=== PATIENT | female | born 1955 | race Two or more races ===

== ENCOUNTER 2017-12-19 08:56 | Day surgery (SDC) | payer BC ==
[2017-12-15 15:43] VITALS: BMI 22.1
[2017-12-19] MEDS ORDERED: PROPOFOL 20 ML ONE ×2 (09:40)
[2017-12-19 10:45] VITALS: TEMP 97.7
[2017-12-19 11:24] VITALS: BP 116/59; PULSE 71
--- NOTE | 2017-12-20 12:35 | PATH ---
Surgical Pathology Report Patient Name: BEAR CROCKETT [facility]. Rec. #: [id number] /Age/Gender: 1955 (Age: 62) / F Account: [id number] Location: [facility]-ENDOSCOPY Taken: 12/19/2017 Received: 12/19/2017 Reported: 12/20/2017 Physicians: Binh Bach M.D. Specimen(s) Received A: BX DUODENUM B: BX ANTRUM Clinical History Preoperative diagnosis: GERD, rule out colon cancer Postoperative diagnosis: Rule out celiac disease, gastritis Final Diagnosis A. DUODENUM, BIOPSY: DUODENAL MUCOSA WITHOUT SIGNIFICANT PATHOLOGIC FINDINGS. B. STOMACH, ANTRUM, BIOPSY: GASTRIC ANTRAL MUCOSA WITH MILD CHRONIC GASTRITIS. IMMUNOHISTOCHEMICAL STAIN FOR H. PYLORI IS NEGATIVE. Electronically Signed Erna Quinones M.D. Gross Description A. Received in formalin, labeled "duodenum" are 2 ernst, irregular portions of soft tissue averaging 0.3 cm. in greatest dimension. The specimens are submitted in toto in one cassette. B. Received in formalin, labeled "antrum" are 2 ernst, irregular portions of soft tissue measuring 0.2 and 0.4 cm. in greatest dimension. The specimens are submitted in toto in one cassette. /12/19/201712/19/2017
== END 2017-12-19 11:30 | disposition home or self-care (01) ==
LOC: FASU-ENDO 08:56
PROVIDERS: ATTEND Internal Medicine Gastroenterology
PROC: 0DB68ZX Excision of Stomach, Via Natural or Artificial Opening Endoscopic, Diagnostic (ICD-10-PCS; 2017-12-19)
PROC: 0DJD8ZZ Inspection of Lower Intestinal Tract, Via Natural or Artificial Opening Endoscopic (ICD-10-PCS; principal; 2017-12-19 10:03)
PROC: 0DB98ZX Excision of Duodenum, Via Natural or Artificial Opening Endoscopic, Diagnostic (ICD-10-PCS; 2017-12-19 10:03)
DX: Z12.11 Encounter for screening for malignant neoplasm of colon (principal); K57.30 Diverticulosis of large intestine without perforation or abscess without bleeding; K64.8 Other hemorrhoids; K29.50 Unspecified chronic gastritis without bleeding; R12 Heartburn

== ENCOUNTER 2020-06-09 09:29 | Emergency (ER) | payer BC, OTHER ==
--- NOTE | 2020-06-09 09:52 | TELE ---
HPI - General Reason For Visit: COVID 19 TESTING History Source: Patient Past History - Medical History Allergies/Adverse Reactions: Allergies Allergy/AdvReac Type Severity Reaction Status Date / Time codeine Allergy Severe Rash Unverified 12/15/17 15:45 Home Medications: Ambulatory Orders Amlodipine Besylate 2.5 mg PO DAILY tablet 05/20/17 Denosumab [Prolia -] 60 mg SQ [id number] 05/20/17 Levothyroxine Sodium 75 mcg PO DAILY tablet 05/20/17 Anemia: No Asthma: No Cancer: No Cardiac Disorders: No CVA: No COPD: No CHF: No Dementia: No Diabetes: No GI Disorders: Yes (GERD) Disorders: No HTN: Yes Hypercholesterolemia: No Liver Disease: No Seizures: No Thyroid Disease: Yes (HYPOTHYROID) - Psycho-Social/Smoking History Smoking History: Never smoked Have you smoked in the past 12 months: No Review of Systems - Review of Systems Able to Perform ROS?: Yes Constitutional: No: Fever Respiratory: No: Cough, Shortness of Breath Cardiac (ROS): No: Chest Pain *Physical Exam - Physical Exam HEENT: positive: Normal Voice - Medical Decision Making 06/09/20 10:34 Spoke to pt who states she need covid testing for work. Has no sxs at this time. Pt told to proceed to [facility] for testing Discharge Diagnosis at time of Disposition: Encounter by telehealth for suspected COVID-19 - Referrals Follow-up Referral(s): Tone Zamudio MD [Primary Care Provider] - - Patient Instructions - Discharge Disposition: HOME Condition at time of Disposition: Stable
== END 2020-06-09 11:12 | disposition home or self-care (01) ==
LOC: JVIRT 09:29
DX: Z03.818 Encounter for observation for suspected exposure to other biological agents ruled out (principal)
CPT/HCPCS: Q3014-GT; U0003

== ENCOUNTER 2020-06-23 10:52 | Emergency (ER) | payer BC, OTHER ==
--- NOTE | 2020-06-23 11:29 | TELE ---
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 Denies fever, chills, shortness of breath, cough. Denies any symptoms Past History - Medical History Allergies/Adverse Reactions: Allergies Allergy/AdvReac Type Severity Reaction Status Date / Time codeine Allergy Severe Rash Unverified 12/15/17 15:45 Home Medications: Ambulatory Orders Amlodipine Besylate 2.5 mg PO DAILY tablet 05/20/17 Denosumab [Prolia -] 60 mg SQ [id number] 05/20/17 Levothyroxine Sodium 75 mcg PO DAILY tablet 05/20/17 Anemia: No Asthma: No Cancer: No Cardiac Disorders: No CVA: No COPD: No CHF: No Dementia: No Diabetes: No GI Disorders: Yes (GERD) Disorders: No HTN: Yes Hypercholesterolemia: No Liver Disease: No Seizures: No Thyroid Disease: Yes (HYPOTHYROID) - Psycho-Social/Smoking History Smoking History: Never smoked Have you smoked in the past 12 months: No Review of Systems - Review of Systems Able to Perform ROS?: Yes Limited Maori proficient: No Constitutional: No: Chills, Fever, Malaise HEENTM: No: Symptoms Reported, See HPI, Eye Pain, Blurred Vision, Tearing, Recent change in vision, Double Vision, Cataracts, Ear Pain, Ocular Prothesis, Ear Discharge, Nose Pain, Nose Congestion, Tinnitus, Nose Bleeding, Hearing Loss, Throat Pain, Throat Swelling, Mouth Pain, Dental Problems, Difficulty Swallowing, Mouth Swelling, Other Respiratory: No: Symptoms reported, See HPI, Cough, Orthopnea, Shortness of Breath, SOB with Exertion, SOB at Rest, Stridor, Wheezing, Productive cough, Hemoptysis, Other Cardiac (ROS): No: Symptoms Reported, See HPI, Chest Pain, Edema, Irregular Heart Rate, Lightheadedness, Palpitations, Syncope, Chest Tightness, Other ABD/GI: No: Symptoms Reported, Nausea, Vomiting All Other Systems: Reviewed and Negative *Physical Exam - Physical Exam General Appearance: Yes: Nourished, Appropriately Dressed. 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 Denies fever, chills, shortness of breath, cough. Denies any symptoms Patient with no acute distress. Discussed with patient self quarantine instructions if patient is symptomatic. COVID tests ordered as per patient request and patient will go to [facility]-through testing for testing today. Patient stable for discharge Discharge Diagnosis at time of Disposition: Encounter by telehealth for suspected COVID-19 - Referrals Follow-up Referral(s): Tone Zamudio MD [Primary Care Provider] - - Patient Instructions - Discharge Disposition: HOME Condition at time of Disposition: Stable
== END 2020-06-23 11:29 | disposition home or self-care (01) ==
LOC: JVIRT 10:52
DX: Z11.59 Encounter for screening for other viral diseases (principal)
CPT/HCPCS: Q3014-GT; U0003

== ENCOUNTER 2020-09-09 09:37 | Emergency (ER) | payer BC, OTHER ==
--- OUTSIDE RECORDS SUMMARY | 2020-09-09 09:53 | XMS ---
:1955 Author Organization [facility] Support Name Relationship Address Phone [facility] Unavailable [address] [place] [address] DAPHNEY CROCKETT [address] [place] [address] DAPHNEY CROCKETT Spouse [address] [place] [address] Re-disclosure Warning The records that you are about to access may contain information from federally- assisted alcohol or drug abuse programs. If such information is present, then the following federally mandated warning applies: This information has been disclosed to you from records protected by federal confidentiality rules (42 CFR part 2). The federal rules prohibit you from making any further disclosure of this information unless further disclosure is expressly permitted by the written consent of the person to whom it pertains or as otherwise permitted by 42 CFR part 2. A general authorization for the release of medical or other information is NOT sufficient for this purpose. The Federal rules restrict any use of the information to criminally investigate or prosecute any alcohol or drug abuse patient.The records that you are about to access may contain highly sensitive health information, the redisclosure of which is protected by Article 27-F of the [facility] Public Health law. If you continue you may haveaccess to information: Regarding HIV / AIDS; Provided by facilities licensed or operated by the [facility] Office of Mental Health; or Provided by the [facility] Office for People With Developmental Disabilities. If such information is present, then the following [facility] mandated warning applies: This information has been disclosed to you from confidential records which are protected by state law. State law prohibits you from making any further disclosure of this information without the specific written consent of the person to whom it pertains, or as otherwise permitted by law. Any unauthorized further disclosure in violation of state law may result in a fine or nursing home sentence or both. A general authorization for the release of medical or other information is NOT sufficient authorization for further disclosure. Insurance Providers Payer name Policy type Policy ID Covered Covered libertarian's Policy P gonzalez / Coverage libertarian ID relationship to [employer] ormation type baez BC PPO [id number] HU [id number] GHI CBP [id number] HU [id number] OUTPT BC PPO [id number] HU [id number] BC [id number] [id number] HU [id number] BC PPO [id number] S [id number] GHI PPO [id number] S [id number] EMPIRE [id number] BCBS (PPO) EMBLEM [id number] HEALTH I CBP [id number] HU [id number] OUTPT Results ID Date Data Source [id number] 06/23/2020 02:40:00 PM EDT [facility] Name Value Range Interpretation Description Data Sup porting Code Source(s) Document(s ) SARS [facility] coronavirus 2 RNA This lab was ordered by [facility] and reported by [facility]. ID Date Data Source [id number] 06/09/2020 10:27:00 AM EDT [facility] Name Value Range Interpretation Description Data Sup porting Code Source(s) Document(s ) SARS [facility] coronavirus 2 RNA This lab was ordered by [facility] and reported by [facility]. Procedure
--- NOTE | 2020-09-09 10:22 | TELE ---
HPI Do you have fever,cough or shortness of breath?: Yes - General Reason For Visit: COVID TESTING History Source: Patient (64-year-old female withhtn and hypothyroidism presents to ED for Covid testing.) Exam Limitations: No Limitations - History of Present Illness Timing/Duration: resolved prior to arrival Associated Symptoms: reports: denies symptoms Past History - Travel History Traveled outside of the country in the last 30 days: No Close contact w/someone who was outside of country & ill: No - Medical History Allergies/Adverse Reactions: Allergies Allergy/AdvReac Type Severity Reaction Status Date / Time codeine Allergy Severe Rash Unverified 12/15/17 15:45 Home Medications: Ambulatory Orders Amlodipine Besylate 2.5 mg PO DAILY tablet 05/20/17 Denosumab [Prolia -] 60 mg SQ [id number] 05/20/17 Levothyroxine Sodium 75 mcg PO DAILY tablet 05/20/17 Anemia: No Asthma: No Cancer: No Cardiac Disorders: No CVA: No COPD: No CHF: No Dementia: No Diabetes: No GI Disorders: Yes (GERD) Disorders: No HTN: Yes Hypercholesterolemia: No Liver Disease: No Seizures: No Thyroid Disease: Yes (HYPOTHYROID) - Psycho-Social/Smoking History Smoking History: Never smoked Have you smoked in the past 12 months: No Review of Systems - Review of Systems Able to Perform ROS?: No Limited Hungarian proficient: No Constitutional: No: Symptoms Reported HEENTM: Yes: Throat Pain Respiratory: No: Symptoms reported Cardiac (ROS): No: Symptoms Reported ABD/GI: No: Symptoms Reported : No: Symptoms Reported Musculoskeletal: No: Symptoms Reported Integumentary: No: Symptoms Reported Neurological: No: Symptoms reported Endocrine: No: Symptoms Reported *Physical Exam - Physical Exam General Appearance: No: Apparent Distress HEENT: positive: EOMI Respiratory/Chest: negative: Respiratory Distress Cardiovascular: negative: Edema Gastrointestinal/Abdominal: negative: Distended Extremity: positive: Normal Inspection Integumentary: positive: Normal Color Neurologic: positive: Motor Strength 5/5 (ambulatory) - Medical Decision Making 09/09/20 10:24 CC: requesting covid testing for work, had sore throat last week but resolved Exam: limited but otherwise normal Plan: covid and ab ordered Discharge Diagnosis at time of Disposition: Encounter for laboratory testing for COVID-19 virus - Referrals Follow-up Referral(s): Tone Zamudio MD [Primary Care Provider] - - Patient Instructions - Discharge Disposition: HOME Condition at time of Disposition: Good
== END 2020-09-09 10:26 | disposition home or self-care (01) ==
LOC: JVIRT 09:37
DX: Z03.818 Encounter for observation for suspected exposure to other biological agents ruled out (principal); Z01.84 Encounter for antibody response examination
CPT/HCPCS: 36415; 86769; C9803; Q3014-GT; U0003

== ENCOUNTER 2022-12-06 10:45 | Emergency (ER) | payer BC, OTHER ==
[2022-12-06 11:14] VITALS: BP 138/76; PULSE 80; RESP 16; TEMP 99; BMI 20.7
[2022-12-06] MEDS ORDERED: ACETAMINOPHEN 500 MG TABLET (FP) PO ONE (12:03)
[2022-12-06] MEDS ORDERED: IBUPROFEN 600 MG TABLET (FP) PO ONE ×2 (12:03→12:04)
[2022-12-06] MEDS ORDERED: ACETAMINOPHEN 500 MG TABLET (FP) ONE (12:04)
[2022-12-06] MEDS ORDERED: traMADol HCL 50 MG TABLET PO ONE (13:30)
[2022-12-06] MEDS ORDERED: traMADol HCL 50 MG TABLET ONE (13:34)
[2022-12-06 19:35] LABS: BF WBC & OTHER NUCLEATED CELLS 23175 /mm3
[2022-12-06 21:18] LABS: BODY FLUID MACROPHAGES 1 %; BODY FLUID MONOCYTE 2 %
== END 2022-12-06 17:00 | disposition home or self-care (01) ==
LOC: FER 10:45
DX: M25.461 Effusion, right knee (principal)
CPT/HCPCS: 36415; 73562-TC-RT-FY; 76882-TC-RT; 82945; 87070; 87075; 87205; 89060; 99284-25

== ENCOUNTER 2022-12-07 19:06 | Emergency (ER) | payer BC, OTHER ==
[2022-12-07 19:21] VITALS: BP 131/72; PULSE 81; RESP 18; TEMP 99.2; BMI 20.7
[2022-12-07 23:04] LABS: HEMATOCRIT 39.4 % (32.4-45.2); HEMOGLOBIN 13.4 G/dL (10.7-15.3); MCH 29.7 pg (25.7-33.7); MCHC 34.1 g/dl (32.0-36.0); MEAN CELL VOLUME 87.2 fl (80-96); MEAN PLT VOLUME 8.7 fl (7.5-11.1); PLATELET COUNT 257.8 10^3/uL (134-434); RBC 4.52 10^6/uL (3.60-5.2); RDW 15.1 % (11.6-15.6); WHITE BLOOD COUNT 9.3 10^3/uL (4.0-10.8)
[2022-12-07 23:10] LABS: ALBUMIN 4.4 g/dl (3.4-5.0); BILIRUBIN,TOTAL 1.2 mg/dl (0.2-1); CALCIUM 8.3 mg/dl (8.5-10); CREATININE 0.7 mg/dl (0.55-1.3); TOT PROT 7.1 g/dl (6.4-8.2)
== END 2022-12-07 20:03 | disposition home or self-care (01) ==
LOC: FER 19:06
DX: M25.061 Hemarthrosis, right knee (principal)
CPT/HCPCS: 36415; 71045-TC-FY; 80053; 85027; 87040; 99284-25

== ENCOUNTER 2023-10-29 10:48 | Day surgery (SDC) | payer BC, OTHER ==
[2023-10-29] MEDS ORDERED: DENOSUMAB 60 MG/ML DISP.SYRIN SQ ONE (11:15)
[2023-10-29 11:57] VITALS: BP 147/65; PULSE 65; RESP 14; TEMP 98.3
== END 2023-10-29 11:59 | disposition home or self-care (01) ==
LOC: FINFUSION 10:48 → FM/S 10:50 → FINFUSION 11:59
PROVIDERS: ATTEND Internal Medicine Endocrinology, Diabetes & Metabolism
PROC: 3E023GC Introduction of Other Therapeutic Substance into Muscle, Percutaneous Approach (ICD-10-PCS; principal; 2023-10-29)
DX: M81.0 Age-related osteoporosis without current pathological fracture (principal)
CPT/HCPCS: 96372; J0897

== ENCOUNTER 2024-07-26 15:21 | Day surgery (SDC) | payer BC, OTHER ==
[2024-07-26] MEDS: DENOSUMAB 60 MG/ML DISP.SYRIN SQ ONE (15:51)
[2024-07-26 16:02] VITALS: BP 119/69; PULSE 75; RESP 18; TEMP 98.2
== END 2024-07-26 15:55 | disposition home or self-care (01) ==
LOC: FINJECTION 15:21 → FM/S 15:22 → FINJECTION 15:55
PROVIDERS: ATTEND Internal Medicine Endocrinology, Diabetes & Metabolism
PROC: 3E013GC Introduction of Other Therapeutic Substance into Subcutaneous Tissue, Percutaneous Approach (ICD-10-PCS; principal; 2024-07-26)
DX: M81.0 Age-related osteoporosis without current pathological fracture (principal)
CPT/HCPCS: 96372; J0897

== ENCOUNTER 2025-01-30 16:26 | Day surgery (SDC) | payer BC, OTHER ==
[2025-01-30] MEDS: ACETAMINOPHEN 325 MG TABLET (FP) PO ONE (17:15)
[2025-01-30] MEDS: ZOLEDRONIC ACID/MAN/WATER 5 MG/100 ML INFUS..BTL IVPB ONE (17:34)
[2025-01-30 18:42] VITALS: BP 139/72; PULSE 65; RESP 18; TEMP 98.1
== END 2025-01-30 18:43 | disposition home or self-care (01) ==
LOC: FINFUSION 16:26 → FM/S 16:27 → FINFUSION 18:43
PROVIDERS: ATTEND Internal Medicine Endocrinology, Diabetes & Metabolism
CPT/HCPCS: 96365; J3489